=== PATIENT | male | born 1985 | race Caucasian/White ===

== ENCOUNTER 2018-03-15 01:50 | Emergency (ER) | payer BC ==
[2018-03-15 02:01] VITALS: RESP 18
[2018-03-15] MEDS ORDERED: MORPHINE SULFATE 4 MG/ML SYRINGE IV STA (02:21)
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
--- NOTE | 2018-03-15 03:22 | XR ---
EXAMINATION TYPE: XR shoulder complete RT DATE OF EXAM: 03/15/2018 COMPARISON: NONE HISTORY: Fall. Pain. TECHNIQUE: 3 views FINDINGS: There is a fracture of the lateral end of the clavicle. There is a 15 mm separation of the fragments with malalignment. The glenohumeral joint is intact. There is no dislocation. IMPRESSION: Displaced clavicle fracture.
[2018-03-15] MEDS ORDERED: KETOROLAC 30 MG/ML 1 ML VIAL IVP STA (03:24)
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
[2018-03-15 04:02] VITALS: BP 112/64; PULSE 76; TEMP 98
== END 2018-03-15 04:02 | disposition home or self-care (01) ==
LOC: EC 01:50
DX: S42.031A Displaced fracture of lateral end of right clavicle, initial encounter for closed fracture (principal); F17.200 Nicotine dependence, unspecified, uncomplicated; V19.9XXA Pedal cyclist (driver) (passenger) injured in unspecified traffic accident, initial encounter; Y93.55 Activity, bike riding; Y92.89 Other specified places as the place of occurrence of the external cause
CPT/HCPCS: 73030; 72125; 70450; 99284; 96374; 96375; J2270; J1885